=== PATIENT | male | born 1955 | race Two or more races ===

== ENCOUNTER 2023-03-17 12:46 | Emergency (ER) | payer MEDICARE, MEDICAID ==
[~2023-03-17] VITALS: Ht 167.6 cm; Wt 72.7 kg
[~2023-03-17 12:46] MED LIST: AMLO-257 PO; LORA-1001 PO; MULT-68 PO
[2023-03-17 12:48] VITALS: TEMP 98
[2023-03-17] MEDS ORDERED: MELO-381 PO (12:48)
[2023-03-17] MEDS ORDERED: HYDROCODONE/ACETAMINOPHEN 5-325 MG TABLET PO ONE (14:15)
[2023-03-17 15:02] LABS: BASOPHILS % (AUTO) 0.8 % (0.0-2.0); EOSINOPHILS % (AUTO) 1.4 % (1.0-6.0); HEMATOCRIT 37.4 % (41-53); LYMPHOCYTES # (AUTO) 2.9 K/uL (1.0-4.8); LYMPHOCYTES % (AUTO) 23.9 % (22.0-44.0); MEAN CORPUSCULAR HEMOGLOBIN 23.9 pg (26.0-34.0); MEAN CORPUSCULAR HGB CONC 32.2 G/dL (31.0-37.0); MEAN CORPUSCULAR VOLUME 74 fL (80-100); MONOCYTES # (AUTO) 1.2 K/uL (0.1-1.0); MONOCYTES % (AUTO) 10.2 % (2.0-9.0); NEUTROPHILS # (AUTO) 7.8 K/uL (1.8-7.7); NEUTROPHILS % (AUTO) 63.7 % (40.0-70.0); PLATELET COUNT (AUTO) 370 K/uL (150-450); RED BLOOD CELL COUNT(AUTO) 5.02 MIL/uL (4.50-5.90); WHITE BLOOD COUNT (AUTO) 12.2 K/uL (4.5-11.0)
[2023-03-17 15:24] LABS: ANION GAP 12 mmol/L (8-16); CALCIUM, TOTAL 9.4 mg/dL (8.8-10.5); CARBON DIOXIDE 25 mmol/L (22-29); CHLORIDE 99 mmol/L (98-107); CREATININE 0.72 mg/dL (0.60-1.30); GLOMERULAR FILTR. RATE CALC > 60 mL/min (>60); GLUCOSE,RANDOM 104 mg/dL (70-110); POTASSIUM 3.8 mmol/L (3.5-5.1); SODIUM SERUM 136 mmol/L (136-145); UREA NITROGEN, BLOOD 16 mg/dL (7-18)
[2023-03-17 15:30] LABS: ALANINE AMINOTRANSFERASE 10 U/L (12-78); ALBUMIN 4.1 g/dL (3.4-5.0); ALKALINE PHOSPHATASE 93 U/L (46-116); ASPARTATE AMINOTRANSFERASE 20 U/L (15-37); BILIRUBIN,TOTAL 0.2 mg/dL (0.1-1.0); TOTAL PROTEIN, SERUM 8.1 g/dL (6.4-8.2)
[2023-03-17 15:53] LABS: RBC MORPHOLOGY COMMENT ABNORMAL RBC MORPH
[2023-03-17] MEDS ORDERED: TRAM-559 PO ×3 (16:16→16:31)
[2023-03-17 16:35] VITALS: BP 145/84; PULSE 85; RESP 18
== END 2023-03-17 16:49 | disposition home or self-care (01) ==
LOC: EMS 12:46
DX: M46.1 Sacroiliitis, not elsewhere classified (principal); M25.552 Pain in left hip; F41.9 Anxiety disorder, unspecified; E78.00 Pure hypercholesterolemia, unspecified; I10 Essential (primary) hypertension; F17.210 Nicotine dependence, cigarettes, uncomplicated
CPT/HCPCS: 73503; 80053; 85025; 93971; 99284